=== PATIENT | male | born 1970 | race Caucasian/White ===

== ENCOUNTER 2021-06-30 12:47 | Inpatient (IN) | payer MEDICAID ==
[~2021-06-30] VITALS: Ht 177.8 cm; Wt 93.4 kg
--- NOTE | ~2021-06-30 | EMS ---
[address] [address] EMS Patient Care Report Name: UMA MARIE Room: [address] IN [facility]#: [id number] Admission: 06/30/21 Attend Phys: Kenny Gudino Discharge: Date of : 66 Report #: [id number] THIS REPORT FOR: //name// Report Transmitted: 06/30/2021 14:10 EMS Care Summary [employer] [facility] Incident [id number] @ 06/30/2021 12:07 Incident Location [address] [place] [address] Patient UMA MARIE Male, 51 Years 1970 Patient Address [address] [place] [address] Patient History Thyroid Disease,Anxiety,Paranoid Schizophrenia, Patient Allergies No known allergies, Patient Medications Levothyroxine, Hydroxyzine, Olanzapine, Lorazepam, Chief Complaint Decreased activity Disposition Transported No Lights/[place] Dispatch Reason Sick Person Transported To [facility] Narrative Dispatched to a residence for 51y/o male with history of schizophrenia and is having "an episode". Upon arrival pt. was alert and normal mentation. Pt. [address] [place] [address] EMS Patient Care Report Name: UMA MARIE Room: [address] IN [place]#: [id number] Admission: 06/30/21 Attend Phys: Kenny Gudion Discharge: Date of : 66 Report #: [id number] brother is his caregiver and stated that pt. has had decreased activity level and several occasions of urinary incontinence over the last 3 days. Pt. is normally active and talkative. Pt. refused to talk but was otherwise cooperative and able to follow commands. Pt. brother stated that he has been trying to contact pt. regular medical providers for 3 days with no success. Brother wants pt. transported to have his medication levels checked. Pt. was transported to [place] for emergency services. Initial Vitals @12:25P: 84,R: 18,BP: 138/68,GCS: 14,Glucose: 90,SpO2: 96,Revised Trauma: 12, @12:40P: 80,R: 18,BP: 126/66,SpO2: 95, Impression No Complaints or Injury/Illness Noted Timeline 12:06,Call Received 12:07,Dispatched 12:07,En Route 12:17,Initial Responder On Scene 12:17,On Scene 12:18,At Patient 12:25,BP: 138/68 M,PULSE: 84,RR: 18 R,SPO2: 96 Ox,ETCO2: ,B,PAIN: ,GCS: 14, 12:26,Depart Scene 12:40,BP: 126/66 M,PULSE: 80,RR: 18 R,SPO2: 95 Ox,ETCO2: ,BG: ,PAIN: ,GCS: , 12:41,At Destination 12:45,Transfer Patient 12:59,Call Closed 13:16,In District Disclaimer v1.1 Copyright 2020 [employer] This EMS Care Summary contains data elements from the applicable legal record (which may be displayed differently). It is designed to provide pertinent information for the following purposes: continuity of care, clinical quality, and state data reporting. The complete legal record is available to ED staff and administrators of the receiving hospital in [employer]'s Patient Tracker. All data is provided "as is."
--- NOTE | ~2021-06-30 | PROC ---
[address] [address] PROCEDURE REPORT Name: UMA MARIE Room: [address] ADM [place] .R.#: [id number] Admission: 06/30/21 Attend Phys: Kenny Gudino Discharge: Date of : 66 Report #: [id number] THIS REPORT FOR: cc: Janee Leone Heather N. RNP [facility],Medical Records Staff ~ For History and Physical please refer to the handwritten note in the patient's medical record. By: 0647Medical Records Staff BUNNY /CAMPBELL
[~2021-06-30 12:47] MED LIST: BENZTROPINE MESY2 MG PO; RISPERDAL 1 MG T1 MG PO; RISPERDAL2 MG PO; RISPERDAL37.5 MG/2 IM; VISTARIL 25 MG25 M1 PO
[2021-06-30] MEDS ORDERED: LEVO-T75 MCG PO (12:56)
[2021-06-30] MEDS ORDERED: LORAZEPAM 0.50.5 MG PO (12:56)
[2021-06-30] MEDS ORDERED: HYDROXYZINE HCL25 M2 PO (12:57)
[2021-06-30 13:17] LABS: ABSOLUTE BASOPHILS 0.1 thou/uL (0.0-0.2); ABSOLUTE LYMPHOCYTES 1.3 thou/uL (0.8-5.3); ABSOLUTE MONOCYTES 0.5 thou/uL (0.0-1.2); BASOPHILS 0.6 %; EOSINOPHILS 0.5 %; HEMATOCRIT 41.5 % (42.0-52.0); HEMOGLOBIN 14.5 gm/dL (14.0-18.0); LYMPHOCYTES 14.6 %; MCH 31.1 pg (26.0-34.0); MCHC 34.8 g/dL (28.0-37.0); MCV 89.3 fL (80.0-100.0); MONOCYTES 5.7 %; MPV 7.4 fl. (7.2-11.1); NUCLEATED RBCS 0 /100WBC; PLATELET COUNT* 287 thou/uL (150-400); POLYS 78.6 %; RBC 4.65 mil/uL (4.50-6.00); WBC 8.9 thou/uL (4.0-11.0)
--- NOTE | 2021-06-30 13:17 | EKG ---
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: YING : 1970 Requested By: Coleman Kendall Order Number: [id number] MD: Fred Gray Measurements Intervals [place] Rate: 144 P: ND: QRS: 147 QRSD: 234 T: 148 QT: 452 QTc: 700 Interpretive Statements Atrial flutter Ventricular tachycardia, unsustained RBBB and LPFB Repol abnrm, probable ischemia, lateral leads Artifact in lead(s) I,III,aVR,aVL,aVF,V1,V2,V3,V4,V5,V6 and baseline wander in lead(s) I,III,aVR,aVL,aVF No previous ECG available for comparison Recommend repeat EKG Electronically Signed On 06-30-2021 13:17:32 ASSISTED LIVING DIRECTOR by Fred Gray [email or web address] <ELECTRONICALLY SIGNED> By: Fred Gray MD, FACC 06/30/21 1317 08 130 Fred Gray MD, FAC /EPI
[2021-06-30 13:25] LABS: CALCIUM 8.9 mg/dL (8.5-10.1); CREATININE 1.2 mg/dL (0.6-1.3); POTASSIUM 3.7 mmol/L (3.5-5.1)
[2021-06-30 13:40] LABS: ALBUMIN 4.3 g/dL (3.4-5.0); TOTAL BILIRUBIN 1.3 mg/dL (<0.1-1.0); TOTAL PROTEIN 8.1 g/dL (6.4-8.2)
[2021-06-30 14:05] LABS: URINE BILIRUBIN NEGATIVE (Negative); URINE BLOOD TRACE (Negative); URINE CLARITY CLEAR; URINE COLOR YELLOW; URINE GLUCOSE-RANDOM NEGATIVE (Negative); URINE KETONES TRACE (Negative); URINE LEUKOCYTES-REFLEX NEGATIVE (Negative); URINE NITRITE-REFLEX NEGATIVE (Negative); URINE PROTEIN NEGATIVE (Negative); URINE UROBILINOGEN 0.2 E.U./dl (0.2-1.0)
[2021-06-30 17:55] VITALS: BP 140/50
[2021-06-30 21:36] VITALS: BP 148/60
[2021-06-30 21:49] VITALS: BP 133/81
--- NOTE | 2021-06-30 22:42 | NUR ---
ALERT BUT NON-TALKATIVE PATIENT TO ROOM 312 ON BED FROM ER. PATIENT TUCKED IN, CALL LIGHT PROVIDED. OFFERED A DRINK OF WATER WHICH HE TOOK AND URINAL. VITAL SIGNS STABLE. FALL PRECAUTIONS IN PLACE. UNABLE TO COMPLETE HISTORY/ASSESSMENT DOCUMENTATION DUE TO FACT THAT PATIENT IS NOT TALKING. CONTINUE TO MONITOR.
--- NOTE | 2021-07-01 04:20 | NUR ---
ASSUMED PATIENT CARE AT ARRIVAL FROM ER AT 2144. PATIENT ORIENTED TO SELF AND WILL FOLLOW SPECIFIC INSTRUCTION. HAS NOT YET VOIDED SINCE ER BUT HAS REMAINED DRY. CONTINUES TO LOOK AROUND AND AT TIMES MAKE EYE CONTACT BUT NOT TALKING. FALL PRECAUTINS IN PLACE. CONTINUE TO MONITOR.
[2021-07-01 08:00] VITALS: BP 141/78
[2021-07-01 09:26] LABS: ABSOLUTE BASOPHILS 0.1 thou/uL (0.0-0.2); ABSOLUTE EOSINOPHILS 0.1 thou/uL (0.0-0.7); ABSOLUTE LYMPHOCYTES 1.5 thou/uL (0.8-5.3); ABSOLUTE MONOCYTES 0.7 thou/uL (0.0-1.2); ABSOLUTE NEUTROPHILS 8.9 thou/uL (1.6-8.1); BASOPHILS 0.8 %; EOSINOPHILS 0.8 %; HEMATOCRIT 43.7 % (42.0-52.0); HEMOGLOBIN 15.2 gm/dL (14.0-18.0); MCH 31.1 pg (26.0-34.0); MCHC 34.8 g/dL (28.0-37.0); MCV 89.3 fL (80.0-100.0); MONOCYTES 6.3 %; MPV 7.6 fl. (7.2-11.1); NUCLEATED RBCS 0 /100WBC; PLATELET COUNT* 301 thou/uL (150-400); POLYS 79.1 %; RBC 4.89 mil/uL (4.50-6.00); WBC 11.3 thou/uL (4.0-11.0)
[2021-07-01 09:35] LABS: CALCIUM 8.8 mg/dL (8.5-10.1); CREATININE 1.2 mg/dL (0.6-1.3); POTASSIUM 3.8 mmol/L (3.5-5.1)
[2021-07-01 16:40] VITALS: BP 156/84
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
--- NOTE | 2021-07-01 18:55 | NUR ---
PATIENT REFUSED TO TRY AND VOID THIS SHIFT, ORDERS RECEIVED FOR TITUS AND IMMEDIATE RETURN OF 1100MLS. IVF INFUSING, SCHED ABX. PATIENT ASSISTED WITH FEEDING BUT REFUSED AT TIMES. MOSTLY NON VERBAL ALTHOUGH PATIENT DID SAY A FEW WORDS. PATIENT TOOK PILLS WITHOUT DIFFICULTY.
[2021-07-01 19:48] VITALS: BP 171/90
[2021-07-02 00:09] VITALS: BP 131/105
[2021-07-02 08:00] VITALS: BP 138/89
[2021-07-02 16:25] VITALS: BP 120/78
--- NOTE | 2021-07-02 18:02 | NUR ---
PT RESTING ON BED. ABD VERY DISTENDED GOOD BOWEL SOUNDS. PT HAS NOT ate or drank much today at all. PT HAS IV WITH MULTIVITAAMINS INFUSING AT 40CC/HR. PT DID THROW UP A SMALL AMOUNT OF CLEAR LIQUID AND PHELM. CALLED AND RECEIVED ORDERS FOR ONDANSETRON AND TYLENOL. WILL CONTINUE TO MONITOR PLAN OF CARE.
[2021-07-02 20:56] VITALS: BP 125/83
[2021-07-03 08:00] VITALS: BP 134/82
[2021-07-03 16:15] VITALS: BP 144/89
--- NOTE | 2021-07-03 18:28 | NUR ---
PT HAS SLEPT MOST OF THE DAY. THEN WOKE UP ASKED FOR WATER DRANK ONE WHOLE CUP OF ICE WATER PT CONTINUES TO REFUSE HIS MEDICATIONS AND WILL NOT EAT ANY FOODS. PT CONTINUES TO HAVE IV VITAMINS INFUSING WITHOUT DIFFICULTY. VSS AFEBRILE. WILL CONTINUE TO MONITOR PLAN OF CARE.
[2021-07-03 18:31] LABS: HEMATOCRIT 43.6 % (42.0-52.0); HEMOGLOBIN 14.7 gm/dL (14.0-18.0); MCH 30.8 pg (26.0-34.0); MCHC 33.8 g/dL (28.0-37.0); MCV 91.2 fL (80.0-100.0); MPV 7.6 fl. (7.2-11.1); RBC 4.78 mil/uL (4.50-6.00); WBC 12.6 thou/uL (4.0-11.0)
[2021-07-03 18:43] LABS: CALCIUM 8.5 mg/dL (8.5-10.1); CREATININE 1.2 mg/dL (0.6-1.3); POTASSIUM 4.1 mmol/L (3.5-5.1)
[2021-07-03 20:24] VITALS: BP 142/81
--- NOTE | 2021-07-03 20:25 | NUR ---
PT REFUSING ALL ORAL MEDS, ENCOURAGING HYDRATION WHEN HE WILL PARTICIPATE
--- NOTE | 2021-07-04 05:04 | NUR ---
PT WOULD NOT TAKE ANY ORAL MEDS BUT WAS ENCOURAGED TO DRINK PLENTY OF FLUIDS. HE DID DRINK SOME SPRITE, JUICE AND WATER. TACHO WAS IRRIGATED AT AROUND 0300 TO ENSURE IT WAS NOT CLOGGED. HE RESPONDED WELL TO DRINKING FLUIDS AND STILL DID NOT WANT ANY ORAL MEDS BUT OUT OF THREE SHIFTS THIS WAS THE MOST ACTIVITY I SAW OF HIM. HE REPORTED HIS STOMACH BEING DISTENDED AND I DISCUSSED HIM HAVING A BM. HE DOES HAVE MIRALAX ON SCHEDULE BUT MAYBE TRY AGAIN TODAY TO ADMINISTER. HE DID NOT REPORT ANY PAIN OR NAUSEA THIS SHIFT.
[2021-07-04 08:00] VITALS: BP 153/97
[2021-07-04 16:00] VITALS: BP 149/90
--- NOTE | 2021-07-04 16:01 | NUR ---
CM FOLLOWUP CM AND PROVIDERS MET TO DISCUSS PLAN OF CARE. PT NOT YET MEDICALLY CLEAR FOR DISCHARGE. PT COMPLETED PSYCH ASSESSMENT AND DOES NOT MEET CRITERIA FOR INPATIENT PSYCH ADMISSION.
--- NOTE | 2021-07-04 18:34 | NUR ---
PATIENT RESTING IN BED. ALERT AND ORIENTED X2-3, CONFUSION. REFUSED MEDICATIONS THROUGHOUT SHIFT. TITUS SECURELY IN PLACE TO DEPENDENT DRAINAGE WIHTOUT COMPLICATIONS. IV TO LEFT AC, SALINE LOCKED. BED IN LOW/LOCKED POSITION. BED ALARM ON. CALL LIGHT WITHIN REACH. NO QUESTIONS OR CONCERNS VOICED. NO C/O PAIN/DISCOMFORT.
[2021-07-04 20:00] VITALS: BP 139/92
[2021-07-04 23:40] VITALS: BP 156/94
--- NOTE | 2021-07-05 04:30 | NUR ---
ASSUMED CARES AT 1920. ALERT. NAUSEAUS. REFUSED ANY ORAL OR IV MEDS. AT 2300, PT VOMITED X 3 OF DARK BROWN COFFEE GROUND EMESIS. LAST EMESIS FILLED HALF A BASIN. O2 SAT 88% AND PT REFUSED NASAL CANNULA DESPITE MUCH COAXING. REFUSED ANTI NAUSEA IV MED. PAGED DR PAREKH. NEW ORDER FOR GI CONSULT, NPO, AND IV PROTONIX. TIUTS CATHETER DD YELLOW URINE. PT AWAKE ENTIRE NIGHT. CALL LIGHT IN REACH AND BED ALARM ON.
[2021-07-05 08:00] VITALS: BP 150/97
--- NOTE | 2021-07-05 17:00 | NUR ---
CM FOLLOWUP CM AND PROVIDERS MET TO DISCUSS PLAN OF CARE. PT NOT MEDICALLY CLEAR TO DISCHARGE AND WILL UNDERGO A SCOPE PROCEDURE TODAY. CM TO CONTINUE TO FOLLOW.
--- NOTE | 2021-07-05 17:29 | NUR ---
PATIENT RESTING IN BED. REMAINS NPO. EGD DONE. 2L OXYGEN, NASAL CANNULA. ALERT AND ORIENTED X3. TITUS SECURELY IN PLACE TO DEPENDENT DRAINAGE WITHOUT COMPLICATIONS. IV TO LEFT AC INFUSING NORMAL SALINE AT 80MLS/HR. BED IN LOW/LOCKED POSITION. BED ALARM ON. CALL LIGHT WITHIN REACH. NO QUESTIONS OR CONCERNS VOICED.
[2021-07-05 17:42] LABS: INR 1.1; PROTIME 10.8 Seconds (9.20-11.50)
[2021-07-05 20:30] VITALS: BP 137/82
[2021-07-06] VITALS: BP 157/78
--- NOTE | 2021-07-06 05:13 | NUR ---
PT SLEPT OFF AND ON OVERNIGHT. LAC IVF INFUSING PER PUMP. SOME HS MEDS GIVEN WITH SIP OF WATER WITHOUT DIFFICULTY. OCC COMPLAINING OR R ABD PAIN, MILD IN NATURE. ABD DISTENDED, +BOWEL SOUNDS. NO N/V OVERNIGHT. PT CONFUSED AT TIMES OVERNIGHT, WANTING TO GET CLOTHES ON TO GO HOME AND THINKS BROTHER IS IN THE ROOM AT ONE POINT. PT TURNED AND REPOSITIONED Q2 HOURS AND PRN, BUTTOCKS WITH OPEN BLISTERED AREAS, PICTURES OBTAINED AND WOUND CARE AND DRSG APPLIED. O2 3L NC TO KEEP SAT >90%, PT IS MOUTH BREATHER AND HAS CONGESTED NASAL PASSAGES HE STATES. TITUS DRAINING YELLOW URINE. NPO WITH SIPS WITH MEDS MAINTAINED, ORAL SWABS AND MOUTH MOISTURIZER GIVEN PRN FOR COMFORT. CALL LITE IN EASY REACH, BED ALARM ON FOR SAFETY.
[2021-07-06 05:40] LABS: ABSOLUTE LYMPHOCYTES 1.1 thou/uL (0.8-5.3); ABSOLUTE MONOCYTES 1.6 thou/uL (0.0-1.2); ABSOLUTE NEUTROPHILS 15.9 thou/uL (1.6-8.1); BASOPHILS 0.1 %; HEMATOCRIT 39.4 % (42.0-52.0); HEMOGLOBIN 13.4 gm/dL (14.0-18.0); LYMPHOCYTES 6.1 %; MCH 30.8 pg (26.0-34.0); MCHC 33.9 g/dL (28.0-37.0); MCV 90.9 fL (80.0-100.0); MONOCYTES 8.8 %; MPV 8.1 fl. (7.2-11.1); NUCLEATED RBCS 0 /100WBC; PLATELET COUNT* 203 thou/uL (150-400); RBC 4.33 mil/uL (4.50-6.00); RDW-CV 13.9 % (10.5-14.5); WBC 18.8 thou/uL (4.0-11.0)
[2021-07-06 05:54] LABS: CALCIUM 8.7 mg/dL (8.5-10.1); CREATININE 1.2 mg/dL (0.6-1.3); POTASSIUM 3.9 mmol/L (3.5-5.1); TOTAL BILIRUBIN 0.8 mg/dL (<0.1-1.0)
[2021-07-06 08:00] VITALS: BP 134/87
[2021-07-06 12:00] VITALS: BP 137/85
--- NOTE | 2021-07-06 17:09 | NUR ---
PT WAS FOUND UNCONSIOUS AND NOT BREATHING. CODE WAS STARTED, ABOUT 1320. PT AT 1351. BROTHER KALEN WAS NOTIFIED AND ARRIVED TO SEE PT.
--- NOTE | 2021-07-06 17:41 | NUR ---
CM FOLLOWUP PT NOT MEDICALLY CLEAR TO DISCHARGE. CM TO CONTINUE TO FOLLOW PT.
== END 2021-07-06 13:51 | DRG 689 ==
LOC: M.ERS 12:47 → M.TBA-ER 14:04 → M.3W 21:45
PROVIDERS: Emergency Medicine Emergency Medical Services; Internal Medicine Gastroenterology; ADMIT Internal Medicine; ATTEND Internal Medicine
PROC: 0DJ08ZZ Inspection of Upper Intestinal Tract, Via Natural or Artificial Opening Endoscopic (ICD-10-PCS; principal; 2021-07-05)
PROC: 5A12012 Performance of Cardiac Output, Single, Manual (ICD-10-PCS; 2021-07-06)
DX: N39.0 Urinary tract infection, site not specified (principal); G93.41 Metabolic encephalopathy; I26.99 Other pulmonary embolism without acute cor pulmonale; K92.0 Hematemesis; K56.7 Ileus, unspecified; F41.9 Anxiety disorder, unspecified; K20.90 Esophagitis, unspecified without bleeding; F20.9 Schizophrenia, unspecified; K21.00 Gastro-esophageal reflux disease with esophagitis, without bleeding; I46.9 Cardiac arrest, cause unspecified; Z79.899 Other long term (current) drug therapy